=== PATIENT | male | born 1990 | race Caucasian/White ===

== ENCOUNTER 2017-06-24 04:00 | Outpatient (CLI) | payer OTHER | END 2017-06-24 04:01 | disposition critical access hospital (66) | LOC: EMS 04:00 | PROVIDERS: ATTEND Surgery | DX: R51 Headache (principal); R11.0 Nausea | CPT/HCPCS: A0425; A0429 ==

== ENCOUNTER 2017-06-24 04:18 | Emergency (ER) | payer OTHER ==
[2017-06-24] MEDS ORDERED: KETOROLAC 60 MG/2 ML VIAL IVP STA (04:25)
[2017-06-24] MEDS ORDERED: diphenhydrAMINE INJ 50 MG/ML VIAL IVP STA (04:25)
[2017-06-24] MEDS ORDERED: METOCLOPRAMIDE 10 MG/2 ML VIAL IVP STA (04:25)
[2017-06-24] MEDS ORDERED: SODIUM CHLORIDE 0.9% 1,000 ML IV ONE (04:25)
[2017-06-24] MEDS ORDERED: KETOROLAC 30 MG/ML VIAL ONE (04:37)
[2017-06-24] MEDS ORDERED: diphenhydrAMINE INJ 50 MG/ML VIAL ONE (04:37)
[2017-06-24] MEDS ORDERED: METOCLOPRAMIDE 10 MG/2 ML VIAL ONE (04:37)
[2017-06-24] MEDS ORDERED: MORPHINE 10 MG/ML VIAL IVP STA (05:27)
[2017-06-24] MEDS ORDERED: MORPHINE 10 MG/ML VIAL ONE (05:35)
--- NOTE | 2017-06-24 06:45 | CT Preliminary Report ---
Exam: CT HEAD W/O IMPRESSION: Small, old left parietal lobe infarct, unchanged. No acute intracranial process devonteie mar RADIA SITE ID: [id number]
--- NOTE | 2017-06-24 06:47 | CT Report ---
EXAM: CT HEAD EXAM DATE: 06/24/2017 06:28 AM. CLINICAL HISTORY: Headache. COMPARISON: 02/12/2015. TECHNIQUE: Multiaxial CT images were obtained from the foramen magnum to the vertex. Reformats: Coron al. IV contrast: None. In accordance with CT protocol optimization, one or more of the following dose reduction techniques w ere utilized for this exam: automated exposure control, adjustment of mA and/or KV based on patient s ize, or use of iterative reconstructive technique. FINDINGS: Parenchyma: No intraparenchymal hemorrhage. No evidence of mass, midline shift, or CT findings of acu te infarction. Small, old left parietal lobe infarct, unchanged Mota-white differentiation is otherwi se distinct. Extraaxial Spaces: Normal for age. No subdural or epidural collections identified. Ventricles: Normal in size and position. Sinuses and Orbits: Imaged paranasal sinuses, orbits, and mastoids show no significant abnormality. Bones: No evidence of fracture or calvarial defect. Other: None. IMPRESSION: Small, old left parietal lobe infarct, unchanged. No acute intracranial process kleber LEMUS Referring Provider Line: [phone] SITE ID: [id number]
[2017-06-24] MEDS ORDERED: HYDROmorphone 1 MG/ML SYRINGE IVP STA (06:51)
[2017-06-24] MEDS ORDERED: oxyCODONE/ACET 5/325 Prepack 4 PO STA (06:52)
--- NOTE | 2017-06-24 06:52 | ED Physician Documentation ---
PD HPI HEADACHE - Stated complaint Stated Complaint: MIGRAINE, N/V - Chief complaint Chief Complaint: Neuro - History obtained from History obtained from: Patient, Family - History of Present Illness Timing - onset: Today Timing - onset during: Rest Timing - details: Gradual onset, Still present Location: Front, Left Quality: Throbbing, Aching Associated symptoms: Nausea, Vomiting, Eye pain. No: Fever, Stiff neck, Syncope , Vision changes Improved by: Rest, Dark room Worsened by: Light, Noise, Moving Similar symptoms before: Work up / diagnostics, Treatment Recently seen: Not recently seen - Additional information Additional information: Patient is a 27 year old male with a history of headaches who is presenting to the emergency department for headache. patient states that it started slowly at work and has become progressively worse. patient tried taking his home medication with little relief. patient developed nausea, vomiting and photophobia so called ems to bring him in for further evaluation. Review of Systems Constitutional: denies: Fever, Chills, Myalgias Eyes: reports: Photophobia Ears: denies: Ear pain, Drainage/discharge Nose: denies: Congestion, Sinus pressure / pain Throat: denies: Sore throat Cardiac: reports: Reviewed and negative Respiratory: reports: Reviewed and negative GI: reports: Nausea, Vomiting. denies: Constipation, Diarrhea : reports: Reviewed and negative Skin: denies: Rash, Lesions Musculoskeletal: denies: Neck pain, Back pain, Extremity pain, Joint pain Neurologic: reports: Headache. denies: Generalized weakness, Focal weakness, Numbness, Difficulty speaking, Head injury, LOC Immunocompromised: denies: Immunocompromised PD PAST MEDICAL HISTORY - Past Medical History Past Medical History: Yes Cardiovascular: None Respiratory: None Neuro: TIA, Headache/migraine Endocrine/Autoimmune: None GI: None : None HEENT: None Psych: None Musculoskeletal: None Derm: None - Past Surgical History Past Surgical History: No - Present Medications Home Medications: Ambulatory Orders Medication Instructions Recorded Confirmed Ondansetron Odt [Zofran] 4 mg TL Q6H PRN #14 tablet 06/24/17 Oxycodone HCl/Acetaminophen 1 - 2 each PO Q6H PRN #14 tablet 06/24/17 [Percocet 5-325 mg Tablet] - Allergies Allergies/Adverse Reactions: Allergies Allergy/AdvReac Type Severity Reaction Status Date / Time No Known Drug Allergies Allergy Verified 06/24/17 04:27 - Social History Does the pt smoke?: No Smoking Status: Never smoker Does the pt drink ETOH?: Yes Does the pt have substance abuse?: No - Immunizations Immunizations are current?: Yes - POLST Patient has POLST: No PD ED PE NORMAL - Vitals Vital signs reviewed: Yes - General General: Alert and oriented X 3, Well developed/nourished - HEENT HEENT: Atraumatic, PERRL, Moist mucous membranes - Neck Neck: Supple, no meningeal sign, No JVD - Cardiac Cardiac: RRR, No murmur - Respiratory Respiratory: No respiratory distress - Abdomen Abdomen: Soft, Non tender, Non distended - Derm Derm: Normal color, Warm and dry, No rash - Extremities Extremities: No deformity, No edema, No calf tenderness / cord - Neuro Neuro: Alert and oriented X 3, 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, No motor deficit, No sensory deficit, Normal speech Eye Opening: Spontaneous Motor: Obeys Commands Verbal: Oriented GCS Score: 15 - Psych Psych: Normal mood PD ED PE EXPANDED - General General: Alert, In Pain Results - Vitals Vitals: Vital Signs - 24 hr 06/24/17 06/24/17 04:24 07:02 Temperature 36.5 C Heart Rate 85 76 Respiratory 20 18 Rate Blood Pressure 131/76 H 100/53 L O2 Saturation 98 99 Oxygen O2 Source Room air Oxygen Flow Rate 2 - Rads (name of study) ct head Radiology: Final report received (no acute intracranial pathology) PD MEDICAL DECISION MAKING - ED course Complexity details: reviewed old records, reviewed results, re-evaluated patient , considered differential, d/w patient ED course: Patient was seen and examined at bedside. IV access was gained and patient was treated with toradol, reglan, IV fluids and benadryl. Patient fell asleep. Upon waking the patient he stated that his pain came back and that he had been dry heaving. Morphine and imaging was ordered. Patient stated that his pain did dimish but it came back when he was jostled. CT head showed no acute changes. LP was discussed with the patient but refused at this time. Patient' s headache etiology is unlikely to be infectious or hemorrhagic in nature. Patient was treated with 1mg of dilauded and stated that he felt comfortable going home when his came. Patient was stable for discharge with close outpatient follow up. Departure - Departure Disposition: Home, Self Care Clinical Impression: Headache Condition: Good Instructions: ED Cephalgia Unspecified Follow-Up: primary,care provider [Other] - Tomorrow Prescriptions: Ondansetron Odt [Zofran] 4 mg TL Q6H PRN #14 tablet PRN Reason: Nausea / Vomiting Oxycodone HCl/Acetaminophen [Percocet 5-325 mg Tablet] 1 - 2 each PO Q6H PRN # 14 tablet PRN Reason: pain Comments: Your diagnostics today were within normal limits. It is important that you follow up with your provider concerning your headaches as they seem to be getting more sever. You should try keeping a headache journal to see what your triggers are. You should make sure you stay well hydrated and get plenty of rest over the next few days. You may return to the emergency department at any time for new, worsening or uncontrollable symptoms. Forms: Activity restrictions
[2017-06-24] MEDS ORDERED: oxyCODONE/ACET 5/325 Prepack 4 PO ONE (07:04)
[2017-06-24] MEDS ORDERED: HYDROmorphone 1 MG/ML SYRINGE ONE (07:04)
[2017-06-24 08:59] VITALS: BP 105/55
== END 2017-06-24 09:11 | disposition home or self-care (01) ==
LOC: EDUNIT# → ED 04:18
DX: R51 Headache (principal); R11.2 Nausea with vomiting, unspecified; Z86.73 Personal history of transient ischemic attack (TIA), and cerebral infarction without residual deficits
CPT/HCPCS: 70450; 96361; 96374; 96375; 99284; J1170